=== PATIENT | male | born 1965 | race Native Hawaiian/Other Pacific Islander ===

== ENCOUNTER 2016-04-02 09:03 | Outpatient (CLI) | payer BC | END 2016-04-02 10:03 | disposition home or self-care (01) | LOC: LAB 09:03 | DX: E11.621 Type 2 diabetes mellitus with foot ulcer (principal); L97.521 Non-pressure chronic ulcer of other part of left foot limited to breakdown of skin; A41.1 Sepsis due to other specified staphylococcus; I10 Essential (primary) hypertension | CPT/HCPCS: 80202; 82565 ==

== ENCOUNTER 2016-04-06 10:06 | Outpatient (CLI) | payer BC | END 2016-04-06 19:08 | disposition home or self-care (01) | LOC: LAB 10:06 | DX: E11.621 Type 2 diabetes mellitus with foot ulcer (principal); L97.521 Non-pressure chronic ulcer of other part of left foot limited to breakdown of skin; A41.1 Sepsis due to other specified staphylococcus; I10 Essential (primary) hypertension | CPT/HCPCS: 80202; 82565 ==

== ENCOUNTER 2016-04-12 10:35 | Outpatient (CLI) | payer BC ==
[2016-04-12 11:32] LABS: PLATELET COUNT 439 K/uL (142-355)
== END 2016-04-12 11:35 | disposition home or self-care (01) ==
LOC: LAB 10:35
PROVIDERS: Internal Medicine
DX: E11.621 Type 2 diabetes mellitus with foot ulcer (principal); L97.521 Non-pressure chronic ulcer of other part of left foot limited to breakdown of skin; A41.1 Sepsis due to other specified staphylococcus; I10 Essential (primary) hypertension; Z79.2 Long term (current) use of antibiotics; Z45.2 Encounter for adjustment and management of vascular access device
CPT/HCPCS: 80202; 82565; 85027; 85651; 86140

== ENCOUNTER 2020-07-08 08:01 | Outpatient (CLI) | payer OTHER | END 2020-07-08 20:38 | disposition home or self-care (01) | LOC: NM 08:01 | PROVIDERS: ATTEND Surgery | DX: M86.172 Other acute osteomyelitis, left ankle and foot (principal) | CPT/HCPCS: A9561 ==

== ENCOUNTER 2020-08-21 07:58 | Outpatient (CLI) | payer OTHER | END 2020-08-21 23:59 | disposition home or self-care (01) | LOC: NM 07:58 | PROVIDERS: ATTEND Surgery | DX: E11.621 Type 2 diabetes mellitus with foot ulcer (principal) | CPT/HCPCS: A9561 ==